=== PATIENT | female | born 1940 | race Caucasian/White ===

== ENCOUNTER → 2020-04-19 | Outpatient (CLI) | payer OTHER ==
[~2020-04-19] MED LIST: ALEVE220 MG PO; ASPIRIN325 PO; CRESTOR10 MG PO; GLUCOPHAGE1000 MG PO; LEVOTHYROXINE 0.15MG PO; LISINOPRIL10 MG PO; MELATONIN3 MG PO; OMEPRAZOLE20 M2 PO
== END ==
LOC: SJCVCIMAG 10:09
DX: I25.10 Atherosclerotic heart disease of native coronary artery without angina pectoris (principal); I10 Essential (primary) hypertension; E78.5 Hyperlipidemia, unspecified; E11.9 Type 2 diabetes mellitus without complications